=== PATIENT | male | born 1975 | race Two or more races ===

== ENCOUNTER 2023-03-10 10:57 | Inpatient (IN) | payer MEDICAID, OTHER ==
[~2023-03-10] VITALS: Ht 157.5 cm; Wt 44.2 kg
[~2023-03-10 10:57] MED LIST: AMLO10TA55 PO; FAMO20 PO; MYCO500T5 PO; OLAN10TA74 PO; PRED5TAB2 PO; TACR0.5C21 PO
[2023-03-10 13:59] LABS: COVID AG,FIA SOURCE NASAL SWAB
[2023-03-10 14:21] LABS: SARS-COV2 (COVID) ANTIGEN,FIA Negative (Negative)
[2023-03-10 14:23] LABS: BASOPHILS % (AUTO) 0.4 % (0.0-2.0); EOSINOPHILS % (AUTO) 0.1 % (1.0-6.0); HEMATOCRIT 35.9 % (41-53); LYMPHOCYTES # (AUTO) 0.9 K/uL (1.0-4.8); LYMPHOCYTES % (AUTO) 8.7 % (22.0-44.0); MEAN CORPUSCULAR HEMOGLOBIN 30.6 pg (26.0-34.0); MEAN CORPUSCULAR HGB CONC 33.4 G/dL (31.0-37.0); MEAN CORPUSCULAR VOLUME 92 fL (80-100); MONOCYTES # (AUTO) 0.4 K/uL (0.1-1.0); MONOCYTES % (AUTO) 3.8 % (2.0-9.0); NEUTROPHILS # (AUTO) 8.6 K/uL (1.8-7.7); PLATELET COUNT (AUTO) 221 K/uL (150-450); RED BLOOD CELL COUNT(AUTO) 3.92 MIL/uL (4.50-5.90); RED CELL DISTRIBUTION WIDTH 13.8 % (11.5-14.5); WHITE BLOOD COUNT (AUTO) 9.9 K/uL (4.5-11.0)
[2023-03-10] MEDS: HALOPERIDOL 5 MG TABLET PO PRN (14:27)
[2023-03-10] MEDS: LORazepam 2 MG TABLET PO PRN (14:27)
[2023-03-10 14:34] LABS: CALCIUM, TOTAL 8.8 mg/dL (8.8-10.5); CREATININE 1.36 mg/dL (0.60-1.30); POTASSIUM 4.1 mmol/L (3.5-5.1)
[2023-03-10 14:40] LABS: ALBUMIN 4.5 g/dL (3.4-5.0); BILIRUBIN,TOTAL 0.7 mg/dL (0.1-1.0); TOTAL PROTEIN, SERUM 7.8 g/dL (6.4-8.2)
[2023-03-10 14:59] LABS: RBC MORPHOLOGY COMMENT NORMAL RBC MORPH
[2023-03-10 17:05] VITALS: BP 140/63; PULSE 72; RESP 18; TEMP 97.2
[2023-03-10] MEDS ORDERED: ACETAMINOPHEN 325 MG TABLET PO PRN (18:00)
[2023-03-10] MEDS ORDERED: MAG HYDROX/ALUMINUM HYD/SIMETH ES 30 ML SUSPENSION UDCUP PO PRN (18:00)
[2023-03-10] MEDS ORDERED: MAGNESIUM HYDROXIDE SUSPENSION 30 ML UDCUP PO PRN (18:00)
[2023-03-10 20:20] VITALS: RESP 18; TEMP 98.1
[2023-03-10] MEDS: ZOLPIDEM TARTRATE 10 MG TABLET PO PRN (21:10)
[2023-03-10] MEDS: TACROLIMUS 5 MG CAPSULE PO SCH (21:10)
[2023-03-10] MEDS: MYCOPHENOLATE MOFETIL 250 MG CAPSULE PO SCH (21:11)
[2023-03-10] MEDS: OLANZapine 10 MG TABLET PO SCH (21:11)
[2023-03-11] MEDS ORDERED: CloNIDine HCL 0.1 MG TABLET PO PRN (05:45)
[2023-03-11] MEDS ORDERED: LOPERAMIDE HCL 2 MG CAPSULE PO PRN (05:45)
[2023-03-11] MEDS ORDERED: ACETAMINOPHEN 325 MG TABLET PO PRN (05:45)
[2023-03-11] MEDS ORDERED: MAG HYDROX/ALUMINUM HYD/SIMETH ES 30 ML SUSPENSION UDCUP PO PRN (05:45)
[2023-03-11] MEDS ORDERED: ONDANSETRON HCL 4 MG TABLET PO PRN (05:45)
[2023-03-11] MEDS ORDERED: MAGNESIUM HYDROXIDE SUSPENSION 30 ML UDCUP PO PRN (05:45)
[2023-03-11] MEDS ORDERED: DOCUSATE SODIUM 100 MG CAPSULE PO PRN (05:45)
[2023-03-11] MEDS ORDERED: BENZOCAINE/MENTHOL LOZENGE PO PRN (05:45)
[2023-03-11] MEDS ORDERED: BACITRACIN 28 GM OINTMENT TP PRN (05:45)
[2023-03-11] MEDS ORDERED: PETROLATUM,WHITE 28 GM JELLY TP PRN (05:45)
[2023-03-11] MEDS ORDERED: ALBUTEROL SULFATE HFA 90 MCG/PUFF 8 GM INHALER IH PRN (05:45)
[2023-03-11] MEDS ORDERED: OMEPRAZOLE 20 MG CAPSULE PO PRN (05:45)
[2023-03-11] MEDS ORDERED: IBUPROFEN 600 MG TABLET PO PRN (05:45)
[2023-03-11 08:23] VITALS: BP 153/71; PULSE 61; RESP 18; TEMP 97.3
[2023-03-11] MEDS: PredniSONE 5 MG TABLET PO SCH (08:58)
[2023-03-11] MEDS: MYCOPHENOLATE MOFETIL 250 MG CAPSULE PO SCH ×2 (08:58→17:50)
[2023-03-11] MEDS: TACROLIMUS 5 MG CAPSULE PO SCH ×2 (08:58→17:50)
[2023-03-11] MEDS: AmLODIPine BESYLATE 10 MG TABLET PO SCH (09:00)
[2023-03-11] MEDS: NICOTINE 21 MG/24 HOUR PATCH TD SCH (09:00)
[2023-03-11] MEDS: LORazepam 2 MG TABLET PO PRN (09:00)
[2023-03-11] MEDS: HALOPERIDOL 5 MG TABLET PO PRN (09:00)
[2023-03-11] MEDS: OLANZapine 10 MG TABLET PO SCH (20:25)
[2023-03-11 20:49] VITALS: RESP 18
[2023-03-11] MEDS: ZOLPIDEM TARTRATE 10 MG TABLET PO PRN (22:02)
[2023-03-12] MEDS: HALOPERIDOL 5 MG TABLET PO PRN ×2 (01:46→06:34)
[2023-03-12] MEDS: LORazepam 2 MG TABLET PO PRN ×2 (01:46→06:34)
[2023-03-12 08:27] VITALS: BP 155/65; PULSE 62; RESP 18; TEMP 97.6
[2023-03-12] MEDS: AmLODIPine BESYLATE 10 MG TABLET PO SCH (08:28)
[2023-03-12] MEDS: TACROLIMUS 5 MG CAPSULE PO SCH ×2 (08:28→18:05)
[2023-03-12] MEDS: PredniSONE 5 MG TABLET PO SCH (08:28)
[2023-03-12] MEDS: MYCOPHENOLATE MOFETIL 250 MG CAPSULE PO SCH ×2 (08:28→18:05)
[2023-03-12] MEDS: NICOTINE 21 MG/24 HOUR PATCH TD SCH (08:29)
[2023-03-12] MEDS ORDERED: INFLUENZA VIRUS VACCINE QVS 2023-24 (6MO+)/PF 60 MCG/0.5 ML SYRINGE IM. ONE (08:45)
[2023-03-12] MEDS: OLANZapine 10 MG TABLET PO SCH (20:12)
[2023-03-12] MEDS: ZOLPIDEM TARTRATE 10 MG TABLET PO PRN (21:51)
[2023-03-13] MEDS: TACROLIMUS 5 MG CAPSULE PO SCH ×2 (08:06→16:07)
[2023-03-13] MEDS: AmLODIPine BESYLATE 10 MG TABLET PO SCH (08:06)
[2023-03-13] MEDS: MYCOPHENOLATE MOFETIL 250 MG CAPSULE PO SCH ×2 (08:06→16:08)
[2023-03-13] MEDS: PredniSONE 5 MG TABLET PO SCH (08:06)
[2023-03-13] MEDS: NICOTINE 21 MG/24 HOUR PATCH TD SCH (08:09)
[2023-03-13 08:29] VITALS: BP 139/69; PULSE 123; RESP 17; TEMP 97.5
[2023-03-13] MEDS: HALOPERIDOL 5 MG TABLET PO PRN (11:58)
[2023-03-13] MEDS: LORazepam 2 MG TABLET PO PRN (11:58)
[2023-03-13] MEDS: OLANZapine 10 MG TABLET PO SCH (20:42)
[2023-03-13] MEDS: ZOLPIDEM TARTRATE 10 MG TABLET PO PRN (20:42)
[2023-03-13 22:11] VITALS: RESP 18
[2023-03-14] MEDS ORDERED: NICOTINE 21 MG/24 HOUR PATCH TD PRN (08:30)
[2023-03-14 08:32] VITALS: BP 132/87; PULSE 101; RESP 18; TEMP 98.1
[2023-03-14] MEDS: MYCOPHENOLATE MOFETIL 250 MG CAPSULE PO SCH ×2 (08:50→16:52)
[2023-03-14] MEDS: TACROLIMUS 5 MG CAPSULE PO SCH ×2 (08:50→16:52)
[2023-03-14] MEDS: AmLODIPine BESYLATE 10 MG TABLET PO SCH (08:51)
[2023-03-14] MEDS: PredniSONE 5 MG TABLET PO SCH (08:51)
[2023-03-14] MEDS: HALOPERIDOL 5 MG TABLET PO PRN (09:56)
[2023-03-14] MEDS: LORazepam 2 MG TABLET PO PRN (09:56)
== END 2023-03-14 18:00 | disposition home or self-care (01) | DRG 750 ==
LOC: EMS 10:59 → 3EC 15:16
PROVIDERS: ADMIT Psychiatry & Neurology Psychiatry; ATTEND Psychiatry & Neurology Psychiatry
DX: F25.9 Schizoaffective disorder, unspecified (principal); G40.909 Epilepsy, unspecified, not intractable, without status epilepticus; R45.851 Suicidal ideations; K59.00 Constipation, unspecified; K21.9 Gastro-esophageal reflux disease without esophagitis; F41.9 Anxiety disorder, unspecified; G47.00 Insomnia, unspecified; F12.10 Cannabis abuse, uncomplicated; I10 Essential (primary) hypertension; J45.909 Unspecified asthma, uncomplicated; Z20.822 Contact with and (suspected) exposure to COVID-19; Z87.891 Personal history of nicotine dependence; Z94.0 Kidney transplant status; Z79.899 Other long term (current) drug therapy; Z91.018 Allergy to other foods
CPT/HCPCS: 80053; 85025; 99285; G0480; J7517; Q9967